=== PATIENT | male | born 1960 | race Caucasian/White ===

== ENCOUNTER 2017-05-09 18:12 | Emergency (ER) | payer BC ==
[2017-05-09] MEDS ORDERED: HYDROmorphone 1 MG/ML Syringe IVPUSH ONE ×2 (18:14→20:35)
[2017-05-09] MEDS ORDERED: Ketorolac 30 MG/ML SDV IVPUSH ONE (18:15)
[2017-05-09] MEDS ORDERED: Ondansetron 4 MG/2 ML SDV IVPUSH ONE (18:15)
[2017-05-09] MEDS ORDERED: Sodium Chloride 0.9% 1,000 ML IV ONE (18:16)
[2017-05-09] MEDS ORDERED: Ondansetron 4 MG/2 ML SDV ONE (18:17)
[2017-05-09] MEDS ORDERED: Ketorolac 30 MG/ML SDV ONE (18:17)
[2017-05-09] MEDS ORDERED: Sodium Chloride 0.9% 10 ML Syringe FLUSH PRN (18:21)
[2017-05-09] MEDS ORDERED: Sodium Chloride 0.9% 2.5 ML Syringe FLUSH PRN (18:21)
--- NOTE | 2017-05-09 18:22 | EDM.PDOC ---
ED HPI GENERAL MEDICAL PROBLEM - General Stated Complaint: ABDOMINAL PAIN Time Seen by Provider: 05/09/17 18:17 Source of Information: Reports: Patient History Limitations: Reports: No Limitations - History of Present Illness INITIAL COMMENTS - FREE TEXT/NARRATIVE: HISTORY AND PHYSICAL: []57-year-old male with 2 hours of severe right abdominal pain History of Present Illness: [Patient had sudden onset of pain and is unable to lay still] Episode of vomiting prior to being in the ER Review of Systems: As per history of present illness and below otherwise all systems reviewed and negative. Past medical history: As per history of present illness and as reviewed below otherwise noncontributory. Surgical history: As per history of present illness and as reviewed below otherwise noncontributory. Social history: No reported history of drug or alcohol abuse. Family history: As per history of present illness and as reviewed below otherwise noncontributory. Physical exam: Alert oriented gentleman who is rolling on the cart due to his pain, answers questions appropriately HEENT: Atraumatic, normocehpalic, pupils reactive, negative for conjunctival pallor or scleral icterus, mucous membranes moist, throat clear, neck supple, nontender, trachea midline. Lungs: Clear to auscultation, breath sounds equal bilaterally, chest non tender. Heart: S1S2, regular, negative for clicks, rubs, or JVD. Abdomen: Soft, nondistended, tender right of mid/lower quadrant. Negative for masses or hepatossplenmegaly. Negative for costovertebral tenderness. Pelvis: Stable nontender. Genitourinary: Deferred. Rectal: Deferred Extremities: Atraumatic, negative for cords or calf pain. Neurovascular unremarkable. Neuro: Awake, alert, oriented. Cranial nerves II through XII unremarkable. Cerebellum unremarkable. Motor and sensory unremarkable throughout. Exam nonfocal. Discussed case with Dr. Miranda that patient has a right 7 mm obstructing calculus to the right ureter with moderate hydronephrosis Diagnostics: [CBC CMP and lipase CT abdomen] Therapeutics: [Dilaudid Toradol Zofran] Impression: [Right renal stone that is obstructing] Plan: [Return at 7:[address] Miranda will see him in day surgery and work him into the schedule for lithotripsy] Definitive disposition and diagnosis as appropriate pending reevaluation and review of above. Onset: Sudden Duration: Hour(s): (2) Location: Reports: Abdomen Quality: Reports: Stabbing Severity: Severe Improves with: Reports: None Worsens with: Reports: None right lower quadrant Pain Score (Numeric/FACES): 10 - Related Data Allergies Allergy/AdvReac Type Severity Reaction Status Date / Time No Known Allergies Allergy Verified 05/09/17 18:19 Home Meds: Home Meds . [No Known Home Meds] 05/09/17 [History] ED ROS GENERAL - Review of Systems Review Of Systems: ROS reveals no pertinent complaints other than HPI. ED EXAM, RENAL/ - Physical Exam Exam: See Below (see dictation) Course - Vital Signs Last Recorded V/S: Last Vital Signs Temp 36.2 C 05/09/17 19:41 Pulse 82 05/09/17 19:41 Resp 18 05/09/17 19:41 BP 114/72 05/09/17 19:41 Pulse Ox 92 L 05/09/17 19:41 - Orders/Labs/Meds Orders: Active Orders 24 hr Category Date Time Status Abdomen Pelvis w Cont [CT] Stat Exams 05/09/17 18:15 Taken Sodium Chloride 0.9% [Saline Flush] Med 05/09/17 18:21 Active 10 ml FLUSH ASDIRECTED PRN Sodium Chloride 0.9% [Saline Flush] Med 05/09/17 18:21 Active 2.5 ml FLUSH ASDIRECTED PRN Saline Lock Insert [OM.PC] Stat Oth 05/09/17 18:21 Ordered Medication Orders Sodium Chloride (Saline Flush) 10 ml FLUSH ASDIRECTED PRN PRN Reason: Keep Vein Open Sodium Chloride (Saline Flush) 2.5 ml FLUSH ASDIRECTED PRN PRN Reason: Keep Vein Open Labs: Laboratory Tests 05/09/17 05/09/17 05/09/17 Range/Units 18:15 18:15 18:55 WBC 10.92 (4.0-11.0) K/uL RBC 5.04 (4.50-5.90) M/uL Hgb 16.0 (13.0-17.0) g/dL Hct 44.2 (38.0-50.0) % MCV 87.7 (80.0-98.0) fL MCH 31.7 (27.0-32.0) pg MCHC 36.2 (31.0-37.0) g/dL RDW Std Deviation 41.9 (28.0-62.0) fl RDW Coeff of Douglas 13 (11.0-15.0) % Plt Count 232 (150-400) K/uL MPV 8.40 (7.40-12.00) fL Neut % (Auto) 77.4 (48.0-80.0) % Lymph % (Auto) 16.7 (16.0-40.0) % Imperial % (Auto) 4.6 (0.0-15.0) % Eos % (Auto) 0.9 (0.0-7.0) % Baso % (Auto) 0.4 (0.0-1.5) % Neut # (Auto) 8.5 H (1.4-5.7) K/uL Lymph # (Auto) 1.8 (0.6-2.4) K/uL Imperial # (Auto) 0.5 (0.0-0.8) K/uL Eos # (Auto) 0.1 (0.0-0.7) K/uL Baso # (Auto) 0.0 (0.0-0.1) K/uL Nucleated RBC % 0.0 /100WBC Nucleated RBCs # 0 K/uL Sodium 143 (136-146) mmol/L Potassium 4.0 (3.5-5.1) mmol/L Chloride 105 (98-110) mmol/L Carbon Dioxide 25 (21-31) mmol/L BUN 19 (6.0-23.0) mg/dL Creatinine 1.0 (0.6-1.5) mg/dL Est Cr Clr Drug Dosing 76.20 mL/min Estimated GFR (MDRD) > 60.0 ml/min Glucose 152 H (60-110) mg/dL Calcium 10.2 (8.8-10.8) mg/dL Total Bilirubin 0.8 (0.1-1.5) mg/dL AST 74 H (5-40) IU/L ALT 135 H (8-54) IU/L Alkaline Phosphatase 79 (40-150) Total Protein 8.0 (6.0-8.0) g/dL Albumin 4.5 (3.5-5.0) g/dL Globulin 3.5 (2.0-3.5) g/dL Albumin/Globulin Ratio 1.3 (1.3-2.8) Amylase 74 (10-90) U/L Urine Color YELLOW Urine Appearance CLEAR Urine pH 6.0 (5.0-8.0) Ur Specific Fernley <= 1.005 (1.001-1.035) Urine Protein NEGATIVE (NEGATIVE) mg/dL Urine Glucose (UA) NEGATIVE (NEGATIVE) mg/dL Urine Ketones 15 H (NEGATIVE) mg/dL Urine Occult Blood LARGE H (NEGATIVE) Urine Nitrite POSITIVE H (NEGATIVE) Urine Bilirubin NEGATIVE (NEGATIVE) Urine Urobilinogen 0.2 (<2.0) EU/dL Ur Leukocyte Esterase TRACE (NEGATIVE) Urine RBC 6-8 (0-2/HPF) Urine WBC 3-6 (0-5/HPF) Ur Epithelial Cells FEW (NONE-FEW) Urine Bacteria FEW (NEGATIVE) Urine Opiates Screen (NEGATIVE) Ur Oxycodone Screen (NEGATIVE) Urine Methadone Screen (NEGATIVE) Ur Barbiturates Screen (NEGATIVE) Ur Phencyclidine Scrn (NEGATIVE) Ur Amphetamine Screen (NEGATIVE) U Methamphetamines Scrn (NEGATIVE) U Benzodiazepines Scrn (NEGATIVE) U Cocaine Metab Screen (NEGATIVE) U Marijuana (THC) Screen (NEGATIVE) 05/09/17 Range/Units 18:55 WBC (4.0-11.0) K/uL RBC (4.50-5.90) M/uL Hgb (13.0-17.0) g/dL Hct (38.0-50.0) % MCV (80.0-98.0) fL MCH (27.0-32.0) pg MCHC (31.0-37.0) g/dL RDW Std Deviation (28.0-62.0) fl RDW Coeff of Douglas (11.0-15.0) % Plt Count (150-400) K/uL MPV (7.40-12.00) fL Neut % (Auto) (48.0-80.0) % Lymph % (Auto) (16.0-40.0) % Imperial % (Auto) (0.0-15.0) % Eos % (Auto) (0.0-7.0) % Baso % (Auto) (0.0-1.5) % Neut # (Auto) (1.4-5.7) K/uL Lymph # (Auto) (0.6-2.4) K/uL Imperial # (Auto) (0.0-0.8) K/uL Eos # (Auto) (0.0-0.7) K/uL Baso # (Auto) (0.0-0.1) K/uL Nucleated RBC % /100WBC Nucleated RBCs # K/uL Sodium (136-146) mmol/L Potassium (3.5-5.1) mmol/L Chloride (98-110) mmol/L Carbon Dioxide (21-31) mmol/L BUN (6.0-23.0) mg/dL Creatinine (0.6-1.5) mg/dL Est Cr Clr Drug Dosing mL/min Estimated GFR (MDRD) ml/min Glucose (60-110) mg/dL Calcium (8.8-10.8) mg/dL Total Bilirubin (0.1-1.5) mg/dL AST (5-40) IU/L ALT (8-54) IU/L Alkaline Phosphatase (40-150) Total Protein (6.0-8.0) g/dL Albumin (3.5-5.0) g/dL Globulin (2.0-3.5) g/dL Albumin/Globulin Ratio (1.3-2.8) Amylase (10-90) U/L Urine Color Urine Appearance Urine pH (5.0-8.0) Ur Specific Fernley (1.001-1.035) Urine Protein (NEGATIVE) mg/dL Urine Glucose (UA) (NEGATIVE) mg/dL Urine Ketones (NEGATIVE) mg/dL Urine Occult Blood (NEGATIVE) Urine Nitrite (NEGATIVE) Urine Bilirubin (NEGATIVE) Urine Urobilinogen (<2.0) EU/dL Ur Leukocyte Esterase (NEGATIVE) Urine RBC (0-2/HPF) Urine WBC (0-5/HPF) Ur Epithelial Cells (NONE-FEW) Urine Bacteria (NEGATIVE) Urine Opiates Screen NEGATIVE (NEGATIVE) Ur Oxycodone Screen NEGATIVE (NEGATIVE) Urine Methadone Screen NEGATIVE (NEGATIVE) Ur Barbiturates Screen NEGATIVE (NEGATIVE) Ur Phencyclidine Scrn NEGATIVE (NEGATIVE) Ur Amphetamine Screen NEGATIVE (NEGATIVE) U Methamphetamines Scrn NEGATIVE (NEGATIVE) U Benzodiazepines Scrn NEGATIVE (NEGATIVE) U Cocaine Metab Screen NEGATIVE (NEGATIVE) U Marijuana (THC) Screen NEGATIVE (NEGATIVE) Meds: Medications Generic Name Dose Route Start Last Admin Trade Name Frerolando PRN Reason Stop Dose Admin Sodium Chloride 10 ml 05/09/17 18:21 Saline Flush FLUSH ASDIRECTED PRN Keep Vein Open Sodium Chloride 2.5 ml 05/09/17 18:21 Saline Flush FLUSH ASDIRECTED PRN Keep Vein Open Discontinued Medications Generic Name Dose Route Start Last Admin Trade Name Frerolando PRN Reason Stop Dose Admin Hydromorphone HCl 1 mg 05/09/17 18:14 05/09/17 18:22 Dilaudid IVPUSH 05/09/17 18:15 1 mg ONETIME ONE Administration Sodium Chloride 1,000 mls @ 999 mls/hr 05/09/17 18:16 05/09/17 18:18 Normal Saline IV 05/09/17 19:16 999 mls/hr STAT ONE Administration Iopamidol 100 ml 05/09/17 19:17 05/09/17 19:17 Isovue Multipack-370 (76%) IVPUSH 05/09/17 19:18 100 ml ONETIME STA Administration Ketorolac Tromethamine 30 mg 05/09/17 18:15 05/09/17 18:20 Toradol IVPUSH 05/09/17 18:16 30 mg ONETIME ONE Administration Ketorolac Tromethamine Confirm 05/09/17 18:17 05/09/17 18:36 Toradol Administered 05/09/17 18:18 Not Given Dose 30 mg .ROUTE .STK-MED ONE Ondansetron HCl 4 mg 05/09/17 18:15 05/09/17 18:19 Zofran IVPUSH 05/09/17 18:16 4 mg ONETIME ONE Administration Ondansetron HCl Confirm 05/09/17 18:17 05/09/17 18:36 Zofran Administered 05/09/17 18:18 Not Given Dose 4 mg .ROUTE .STK-MED ONE Departure - Departure Time of Disposition: 20:39 Disposition: Home, Self-Care 01 Condition: Good Clinical Impression: Kidney stone - Discharge Information Instructions: Kidney Stones, [id number] Additional Instructions: The following information is given to patients seen in the emergency department who are being discharged to home. This information is to outline your options for follow-up care. We provide all patients seen in our emergency department with a follow-up referral. The need for follow-up, as well as the timing and circumstances, are variable depending upon the specifics of your emergency department visit. If you don't have a primary care physician on staff, we will provide you with a referral. We always advise you to contact your personal physician following an emergency department visit to inform them of the circumstance of the visit and for follow-up with them and/or the need for any referrals to a consulting specialist. The emergency department will also refer you to a specialist when appropriate. This referral assures that you have the opportunity for followup care with a specialist. All of these measure are taken in an effort to provide you with optimal care, which includes your followup. Under all circumstances we always encourage you to contact your private physician who remains a resource for coordinating your care. When calling for followup care, please make the office aware that this follow-up is from your recent emergency room visit. If for any reason you are refused follow-up, please contact the [facility] emergency department at and asked to speak to the emergency department charge nurse. Given 1 hydrocodone to take at midnight tonight Return to day surgery at 7:[address] Bolotn will work you into his schedule for lithotripsy - My Orders Last 24 Hours: My Active Orders 05/09/17 18:15 Abdomen Pelvis w Cont [CT] Stat 05/09/17 18:21 Sodium Chloride 0.9% [Saline Flush] 10 ml FLUSH ASDIRECTED PRN Sodium Chloride 0.9% [Saline Flush] 2.5 ml FLUSH ASDIRECTED PRN Saline Lock Insert [OM.PC] Stat - Assessment/Plan Last 24 Hours: My Active Orders 05/09/17 18:15 Abdomen Pelvis w Cont [CT] Stat 05/09/17 18:21 Sodium Chloride 0.9% [Saline Flush] 10 ml FLUSH ASDIRECTED PRN Sodium Chloride 0.9% [Saline Flush] 2.5 ml FLUSH ASDIRECTED PRN Saline Lock Insert [OM.PC] Stat
[2017-05-09 18:47] LABS: CHLORIDE,CL 105 mmol/L (98-110); SODIUM,NA 143 mmol/L (136-146)
[2017-05-09] MEDS ORDERED: Iopamidol 755 MG/ML 500 ML Multipack Bottle IVPUSH STA (19:17)
[2017-05-09 19:42] VITALS: BP 114/72
[2017-05-09] MEDS ORDERED: Acetaminophen/HYDROcodone 325-10 MG Tab PO ONE (20:36)
--- NOTE | 2017-05-10 10:04 | CT ---
EXAM DATE: 05/09/17 PATIENT'S AGE: 57 Patient: JIM FULLER Facility: [place], [place] Site . Site : [id number] Study: CT Abdomen/Pelvis [id number]/19/2017 7:15:23 PM Ordering Physician: Doctor Humphries Final Report: INDICATION: Right lower quadrant pain TECHNIQUE: CT abdomen and pelvis acquired with IV contrast. COMPARISON: None FINDINGS: Lower chest: Unremarkable. Liver: Unremarkable. Spleen: Unremarkable. Pancreas: Unremarkable. Gallbladder and bile ducts: Cholelithiasis. Kidneys: 7 millimeter obstructing calculus proximal right ureter with moderate hydronephrosis. Adrenal glands: Unremarkable. GI tract: Unremarkable. Appendix is normal. Vascular structures: Unremarkable. Lymph nodes: Unremarkable. Miscellaneous: Unremarkable. No free air or significant free fluid. Pelvic Organs: Prostatomegaly. Bones: Unremarkable for age. IMPRESSION: 7 millimeter obstructing calculus proximal right ureter with moderate hydronephrosis. Normal appendix. Cholelithiasis. Dictated by Anthony Price MD @ 05/09/2017 7:40:26 PM Dictated by: Anthony Price MD @ 05/09/2017 19:40:39 (Electronic Signature) Report Signed by Proxy. [facility] HOSPITALJammie
== END 2017-05-09 20:55 | disposition home or self-care (01) ==
LOC: MW.ED 18:12
DX: N13.2 Hydronephrosis with renal and ureteral calculous obstruction (principal)
CPT/HCPCS: 36415; 74177; 80053; 80305; 81001; 82150; 85025; 96361; 96374; 96375; 99284; A9270; J1170; J1885; J2405; J7040; Q9967

== ENCOUNTER 2017-05-10 08:33 | Day surgery (SDC) | payer BC ==
[2017-05-10] MEDS ORDERED: Ondansetron 4 MG/2 ML SDV ONE (08:35)
[2017-05-10] MEDS ORDERED: fentaNYL 250 MCG/5 ML SDV ONE (08:35)
[2017-05-10] MEDS ORDERED: Lidocaine 2% 5 ML SDV ONE (08:35)
[2017-05-10] MEDS ORDERED: Midazolam 1 MG/ML 2 ML SDV ONE (08:35)
[2017-05-10] MEDS ORDERED: Propofol 200 MG/20 ML SDV ONE (08:35)
[2017-05-10] MEDS ORDERED: Neostigmine Methylsulfate 1 MG/ML 5 ML Syringe ONE (08:35)
[2017-05-10] MEDS ORDERED: Rocuronium 10 MG/ML 10 ML Syringe ONE (08:35)
[2017-05-10] MEDS ORDERED: ceFAZolin 1 GM Vial ONE (08:38)
[2017-05-10] MEDS ORDERED: Sodium Chloride 0.9% 20 ML ONE (08:38)
[2017-05-10] MEDS ORDERED: ePHEDrine 50 MG/ML SDV ONE (08:40)
[2017-05-10] MEDS ORDERED: ceFAZolin 1 GM in Premix Bag 1 BAG IV ONE (09:00)
[2017-05-10] MEDS ORDERED: Lactated Ringers 1,000 ML IV SCH (09:00)
--- NOTE | 2017-05-10 09:29 | PCM.PREANE ---
Preanesthetic Assessment - Procedure Proposed Procedure: ESWL for right ureteral stone - Anesthesia/Transfusion/Family Hx Anesthesia History: Prior Anesthesia Without Reaction (cataract, traumatic source) Family History of Anesthesia Reaction: No Transfusion History: No Prior Transfusion(s) Intubation History: Unknown Additional History: Elevated liver enzymes; Hepatitis C - Review of Systems General: No Symptoms Pulmonary: No Symptoms Cardiovascular: No Symptoms Gastrointestinal: Abdominal Pain (due to stone) Neurological: No Symptoms Other: Reports: None - Physical Assessment NPO Status Date: 05/09/17 NPO Status Time: 22:00 O2 Sat by Pulse Oximetry: 100 Respiratory Rate: 16 Vital Signs: Last Vital Signs Temp 98.1 F 05/10/17 08:58 Pulse 55 L 05/10/17 08:58 Resp 16 05/10/17 08:58 BP 113/60 05/10/17 08:58 Pulse Ox 100 05/10/17 08:58 Height: 5 ft 11 in Weight: 204 lb ASA Class: 2 Mental Status: Alert & Oriented x3 Airway Class: Mallampati = 1 Dentition: Reports: Normal Dentition, Partial (#7) Thyro-Mental Finger Breadths: 3 Mouth Opening Finger Breadths: 3 ROM/Head Extension: Full Lungs: Clear to Auscultation, Normal Respiratory Effort Cardiovascular: Regular Rate, Regular Rhythm, No Murmurs - Allergies Allergies/Adverse Reactions: Allergies Allergy/AdvReac Type Severity Reaction Status Date / Time No Known Allergies Allergy Verified 05/09/17 18:19 - Blood Blood Available: No Product(s) Available: None - Acknowledgements Anesthesia Type Planned: General Anesthesia (OET) Pt an Appropriate Candidate for the Planned Anesthesia: Yes Alternatives and Risks of Anesthesia Discussed w Pt/Guardian: Yes Pt/Guardian Understands and Agrees with Anesthesia Plan: Yes PreAnesthesia Questionnaire - Past Health History Medical/Surgical History: Denies Medical/Surgical History HEENT History: Reports: Other (See Below) Other HEENT History: wears glasses, upper partial Gastrointestinal History: Reports: Hepatitis Other Gastrointestinal History: hepatitis C Genitourinary History: Reports: Other (See Below) Other Genitourinary History: currently has kidney stone - Past Surgical History Head Surgeries/Procedures: Reports: None - SUBSTANCE USE Smoking Status *Q: Never Smoker Recreational Drug Use History: No - HOME MEDS Home Medications: Home Meds . [No Known Home Meds] 05/09/17 [History] - CURRENT (IN HOUSE) MEDS Current Meds: Current Medications Lactated Ringer's (Ringers, Lactated) 1,000 mls @ 100 mls/hr IV ASDIRECTED GENOVEVA Last Admin: 05/10/17 09:12 Dose: 100 mls/hr Cefazolin Sodium/Dextrose 1 gm (/ Premix) 50 mls @ 100 mls/hr IV ONETIME ONE Stop: 05/10/17 09:29 Discontinued Medications Cefazolin Sodium (Ancef) Confirm Administered Dose 1 gm .ROUTE .STK-MED ONE Stop: 05/10/17 08:39 Ephedrine Sulfate (Ephedrine Sulfate) Confirm Administered Dose 50 mg .ROUTE .STK-MED ONE Stop: 05/10/17 08:41 Fentanyl (Sublimaze) Confirm Administered Dose 250 mcg .ROUTE .STK-MED ONE Stop: 05/10/17 08:36 Glycopyrrolate () Confirm Administered Dose 1 mg .ROUTE .STK-MED ONE Stop: 05/10/17 08:36 Sodium Chloride (Normal Saline) Confirm Administered Dose 20 mls @ as directed .ROUTE .STK-MED ONE Stop: 05/10/17 08:39 Lidocaine (Xylocaine-Mpf 2%) Confirm Administered Dose 5 ml .ROUTE .STK-MED ONE Stop: 05/10/17 08:36 Midazolam HCl (Versed 1 Mg/Ml) Confirm Administered Dose 2 mg .ROUTE .STK-MED ONE Stop: 05/10/17 08:36 Neostigmine Methylsulfate (Neostigmine) Confirm Administered Dose 5 mg .ROUTE .STK-MED ONE Stop: 05/10/17 08:36 Ondansetron HCl (Zofran) Confirm Administered Dose 4 mg .ROUTE .STK-MED ONE Stop: 05/10/17 08:36 Propofol (Diprivan 20 Ml) Confirm Administered Dose 200 mg .ROUTE .STK-MED ONE Stop: 05/10/17 08:36 Rocuronium Elmo (Zemuron) Confirm Administered Dose 100 mg .ROUTE .STK-MED ONE Stop: 05/10/17 08:36
--- NOTE | 2017-05-10 10:41 | PCM.POSTAN ---
POST ANESTHESIA ASSESSMENT - MENTAL STATUS Mental Status: Alert, Oriented - VITAL SIGNS Pulse Rate: 80 SaO2: 96 Resp Rate: 14 Blood Pressure: 113/87 - RESPIRATORY Respiratory Status: respiratory rate WNL, Airway Patent, O2 Saturation Stable - CARDIOVASCULAR CV Status: Pulse Rate WNL, Blood Pressure Stable - GASTROINTESTINAL GI Status: No Symptoms - PAIN Pain Score: 0 - POST OP HYDRATION Hydration Status: Adequate & Stable
[2017-05-10] MEDS ORDERED: Acetaminophen/HYDROcodone 325-10 MG Tab PO ONE (11:15)
--- NOTE | 2017-05-10 11:15 | PCM48HPAN ---
Post Anesthesia Note - EVALUATION WITHIN 48HRS OF ANESTHETIC Vital Signs in Normal Range: Yes Patient Participated in Evaluation: Yes Respiratory Function Stable: Yes Airway Patent: Yes Cardiovascular Function Stable: Yes Hydration Status Stable: Yes Pain Control Satisfactory: Yes (Required PO analgesia on return to Phase II) Nausea and Vomiting Control Satisfactory: Yes Mental Status Recovered: Yes
[2017-05-10] MEDS ORDERED: fentaNYL 100 MCG/2 ML SDV ONE (11:54)
[2017-05-10] MEDS: fentaNYL 100 MCG/2 ML SDV IVPUSH PRN ×2 (11:55→12:05)
[2017-05-10] MEDS ORDERED: Ketorolac 15 MG/ML SDV ONE (12:29)
[2017-05-10] MEDS ORDERED: HYDROmorphone 2 MG/ML Syringe ONE (12:36)
[2017-05-10] MEDS ORDERED: Ketorolac 30 MG/ML SDV IVPUSH ONE (12:40)
[2017-05-10] MEDS ORDERED: HYDROmorphone 2 MG/ML Syringe IVPUSH ONE (12:45)
[2017-05-10] MEDS ORDERED: HYDROmorphone 1 MG/ML Syringe IVPUSH ONE (12:45)
[2017-05-10] MEDS ORDERED: Acetaminophen/HYDROcodone 325-10 MG Tab PO PRN (14:46)
--- NOTE | 2017-05-10 15:43 | OR ---
SURGEON: Viola oBlton M.D. DATE OF PROCEDURE: 05/10/2017 PREOPERATIVE DIAGNOSIS: Right upper ureteral stone, 7 mm. POSTOPERATIVE DIAGNOSIS: Right upper ureteral stone, 7 mm. OPERATION: Extracorporeal shock wave lithotripsy. DESCRIPTION OF PROCEDURE: The patient was given general anesthesia, placed on the lithotripsy table. The position of the patient was adjusted, so the stone could be treated and received a total of 1600 shocks. At the end of the treatment, the stone shadow completely disappeared. With that done, the procedure was terminated. The patient was sent to recovery room in stable condition. SHANTEL / CLAUDIA /[id number]
--- NOTE | 2017-05-10 16:01 | CONS ---
DATE OF CONSULTATION: 05/10/2017 DATE OF : 1960 PRIMARY CARE PHYSICIAN: None PCP HISTORY OF PRESENT ILLNESS: A 57-year-old presented to the emergency room late last night with sudden onset of right flank pain. He had a UA that showed no indication of UTI. He had a CT scan that showed a 7 mm right upper ureteral stone with obstruction. No other stones. He said he had a stone 30 some years ago. PAST MEDICAL HISTORY: Positive for hepatitis C, otherwise negative. PAST SURGICAL HISTORY: Cataract surgery. PHYSICAL EXAMINATION: GENERAL: He is alert. He is oriented. VITAL SIGNS: Normal. HEART: Normal sinus rhythm. LUNGS: Clear. ABDOMEN: Negative. EXTERNAL GENITALIA: Normal. DIAGNOSIS: Right upper ureteral stone. PLAN: ESWL. SHANTEL / CLAUDIA /[id number]
[2017-05-10 16:08] VITALS: BP 122/76
== END 2017-05-10 15:15 | disposition home or self-care (01) ==
LOC: MW.SDS 08:33
PROVIDERS: ATTEND Urology
DX: N20.1 Calculus of ureter (principal); Z98.890 Other specified postprocedural states; Z79.899 Other long term (current) drug therapy
CPT/HCPCS: 50590; A9270; J0690; J1170; J1885; J2250; J2405; J3010; J7120; 00873; J2704